=== PATIENT | male | born 1990 | race Caucasian/White ===

== ENCOUNTER 2016-03-16 08:43 | Emergency (ER) | payer OTHER ==
[2016-03-16] MEDS ORDERED: ONDANSETRON ODT 4 MG TAB ONE (10:06)
[2016-03-16] MEDS ORDERED: KETOROLAC 60 MG/2 ML VIAL IM ONE (11:59)
[2016-03-16] MEDS ORDERED: CYCLOBENZAPRINE 10 MG TAB ONE (12:00)
== END 2016-03-16 12:29 | disposition home or self-care (01) ==
LOC: ER 08:43
CPT/HCPCS: 70450; 72125; 96372